=== PATIENT | male | born 1985 ===

== ENCOUNTER 2020-11-26 22:17 | Emergency (ER) | payer MEDICAID ==
[~2020-11-26] VITALS: Ht 172.7 cm; Wt 95.0 kg
--- NOTE | 2020-11-26 22:24 | NUR ---
Pt with some purposeful movement, NPA in right nares, spont RR and end tidal of 26. Opens eyes with painful stimuli. [employer] present, pt placed in 4pt leather restraints. IV from field patent. VSS. EKG done. Fidgalgo at bedside.
--- NOTE | 2020-11-26 22:47 | NUR ---
Pt waking up more now, follow simple commands, maintain gag reflex, opens mouth for suction. Labs drawn, straight cath in and out for urine tox. [employer] released pt from custody.
[2020-11-26 22:50] LABS: BASOPHILS % (AUTO) 0 % (0-1); EOSINOPHILS % (AUTO) 1 % (1-7); LYMPHOCYTES % (AUTO) 11 % (22-44); MEAN CORPUSCULAR HEMOGLOBIN 32.3 pg (27.5-34.5); MEAN CORPUSCULAR HGB CONC 34.1 g/dL (33.2-36.2); MEAN PLATELET VOLUME 8.6 fL (7.4-10.4); MONOCYTES % (AUTO) 6 % (2-9); NEUTROPHILS % (AUTO) 82 % (42-75); PLATELET COUNT 309 x10^3/uL (130-400); RED BLOOD COUNT 4.71 x10^6/uL (4.38-5.82)
[2020-11-26 22:51] LABS: MD NO
[2020-11-26 23:00] LABS: ALANINE AMINOTRANSFERASE 21 U/L (12-78); ANION GAP 9 mmol/L (5-15); CALCIUM 8.4 mg/dL (8.5-10.1); CHLORIDE 106 mmol/L (98-107); CREATININE 0.95 mg/dL (0.7-1.3); SALICYLATE LEVEL 2.7 mg/dL (2.8-20.0)
[2020-11-26] MEDS ORDERED: SODIUM CHLORIDE 0.9% 1,000ML IVBOLUS ONE (23:00)
--- NOTE | 2020-11-26 23:01 | NUR ---
Pt more alert, NPA removed, pt speaking intermittent language and saying prayers. Reoriented pt to where he is. VSS. Will continue to monitor. CN informed of progress of pt for downgrade to [facility].
[2020-11-26 23:02] LABS: ALKALINE PHOSPHATASE 72 U/L (45-117); BILIRUBIN,TOTAL 0.2 mg/dL (0.2-1.0); TOTAL PROTEIN 7.2 g/dL (6.4-8.2)
[2020-11-26 23:07] LABS: AMPHETAMINE SCREEN, URINE Negative (Negative); BARBITURATE SCREEN, URINE Negative (Negative); BENZODIAZEPINE SCREEN, URINE Negative (Negative); CANNABINOID SCREEN, URINE Positive (Negative); COCAINE SCREEN, URINE Negative (Negative); METHADONE SCREEN, URINE Negative (Negative); OPIATE SCREEN, URINE Negative (Negative)
--- NOTE | 2020-11-26 23:11 | NUR ---
Pt stable for downgrade to psych room, CN informed.
--- NOTE | 2020-11-26 23:29 | NUR ---
Remains awake, alert cooperative, vss. Belongings bagged and labeled x2. [employer] released, the "evidence" bag is his property.
--- NOTE | 2020-11-26 23:43 | NUR ---
All restraints released, pt calm, cooperative is now alert and oriented x3. VSS. To be moved to psych area. Belongings to storage.
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
--- NOTE | 2020-11-27 00:03 | NUR ---
REPORT FROM ROSARIO EDDY. PT MOVED FROM T4 TO ROOM 2
--- NOTE | 2020-11-27 02:03 | NUR ---
PT RESTING COMFORTABLY ON GURNEY WITH EYES CLOSED. PT DENIES ANY NEEDS AT THIS TIME. SAFETY MEASURES IN PLACE AND SITTER IN VIEW.
--- NOTE | 2020-11-27 05:02 | NUR ---
PT SUPINE ON GURNEY, RESTING COMFORTABLY WITH EYES CLOSED. NADN, VSS. PT DENIES ANY NEEDS AT THIS TIME. SAFETY PRECAUTIONS IN PLACE AND SITTER IN VIEW, WILL CONTINUE TO MONITOR.
--- NOTE | 2020-11-27 05:10 | NUR ---
PT OFFERED TO BE MOVED TO HOSPITAL BED AT THIS TIME, PT DECLINED AND STATES "I AM FINE RIGHT NOW. I STILL WANT TO REST AND JUST GO HOME". WILL ATTEMPT AGAIN LATER
--- NOTE | 2020-11-27 05:54 | NUR ---
packet faxed to [facility] for first dibs
--- NOTE | 2020-11-27 06:57 | NUR ---
REPORT TO LOYDA EDDY
--- NOTE | 2020-11-27 07:00 | NUR ---
REPORT FROM MAGDALENE, ASSUME CARE OF PT AT THIS TIME. PT SLEEPING, SITTER AT DOORWAY.
--- NOTE | 2020-11-27 07:37 | NUR ---
EMERGENCY PREPAREDNESS MANAGER: JAZZMINE EDDY FROM [facility] AT BEDSIDE FOR PT EVAL, DISCUSSING POC WITH PRIMARY RN LOYDA WITH REGARDS TO PT ACCEPTANCE ON BHU FLOOR.
[2020-11-27 08:00] VITALS: BP 101/61
--- NOTE | 2020-11-27 08:01 | NUR ---
TASK RN: LOUIS SWAB OBTAINED AND WALKED TO LAB. PT TOLERATED WELL. PT PROVIDED W/ BREAKFAST TRAY. NO OTHER NEEDS AT THIS TIME. RESP EVEN AND UNLABORED, NATALIA.
--- NOTE | 2020-11-27 09:17 | NUR ---
CALL TO JAZZMINE/Sandro TO INQUIRE ON PT'S ACCEPTANCE. INSURANCE VERIFICATION PENDING. [facility] WILL CALL BACK WHEN VERIFICATION PROCESS COMPLETE. PT SLEEPING, NAD. SITTER AT DOORWAY.
--- NOTE | 2020-11-27 10:29 | NUR ---
REPORT TO Sandro, PT READY TO GO AT 1100.
--- NOTE | 2020-11-27 11:42 | NUR ---
AWAITING 1:1 SITTER AVAILABILITY BEFORE PT CAN BE TRANSPORTED TO [facility]. PT COOPERATIVE WITH CARE, SLEEPING INTERMITTENTLY. IV D/C'D, MONITORING EQUIPMENT REMOVED. CALL LIGHT WITHIN REACH.
[2020-11-27] MEDS ORDERED: ESCI10TA10 PO (15:40)
== END 2020-11-27 12:20 ==
LOC: ED 11-27 00:27 → EDIP 11-27 01:32 → UNDOADMOB 11-27 01:32 → ED 11-27 12:20
DX: F32.1 Major depressive disorder, single episode, moderate (principal); Z20.822 Contact with and (suspected) exposure to COVID-19; R45.851 Suicidal ideations; G92 Toxic encephalopathy; R94.31 Abnormal electrocardiogram [ECG] [EKG]; F10.120 Alcohol abuse with intoxication, uncomplicated; Z72.9 Problem related to lifestyle, unspecified; Y90.0 Blood alcohol level of less than 20 mg/100 ml
CPT/HCPCS: 36415; 80053; 80299; 80307; 80320; 80329; 85025; 87426; 93005; 96360; 96361; 99285; J7030; G0480

== ENCOUNTER 2020-11-27 11:24 | Inpatient (IN) | payer MEDICAID ==
[~2020-11-27] VITALS: Ht 172.7 cm; Wt 95.0 kg
[2020-11-27] MEDS ORDERED: ONDANSETRON ODT 4 MG PO PRN (11:30)
[2020-11-27] MEDS ORDERED: ACETAMINOPHEN 325 MG TABLET PO PRN (11:30)
[2020-11-27] MEDS ORDERED: PLEASE ENTER HEIGHT AND WEIGHT MC SCH (13:30)
[2020-11-27 13:55] VITALS: BP 132/89
[2020-11-27] MEDS ORDERED: ESCI10TA10 PO (15:40)
[2020-11-27 19:47] VITALS: BP 99/58
[2020-11-27] MEDS: DIVALPROEX 500 MG TABLET.DR PO SCH (21:00)
[2020-11-28 06:48] LABS: CHOL/HDL RATIO 3.3; FREE T4 (FREE THYROXINE) 1.07 ng/dL (0.76-1.46); LDL/HDL RATIO 1.4 (0.5-3.0)
[2020-11-28 07:41] VITALS: BP 106/65
[2020-11-28] MEDS: ESCITALOPRAM 10MG TABLET PO SCH (08:38)
[2020-11-28] MEDS: DIVALPROEX 500 MG TABLET.DR PO SCH ×2 (08:39→19:36)
[2020-11-28 15:13] LABS: MICROSCOPIC NOT IND
[2020-11-28 19:44] VITALS: BP 124/84
[2020-11-28 19:46] VITALS: BP 125/80
[2020-11-29 07:44] VITALS: BP 119/70
[2020-11-29] MEDS: ESCITALOPRAM 10MG TABLET PO SCH (08:44)
[2020-11-29] MEDS: DIVALPROEX 500 MG TABLET.DR PO SCH ×2 (09:00→20:25)
[2020-11-29 19:49] VITALS: BP 105/68
[2020-11-30 07:34] VITALS: BP 104/68
[2020-11-30] MEDS: ESCITALOPRAM 10MG TABLET PO SCH (09:00)
[2020-11-30] MEDS: DIVALPROEX 500 MG TABLET.DR PO SCH ×2 (09:00→20:50)
[2020-11-30 19:35] VITALS: BP 110/70
[2020-12-01 07:15] VITALS: BP 114/73
[2020-12-01] MEDS: ESCITALOPRAM 10MG TABLET PO SCH (08:36)
[2020-12-01] MEDS: DIVALPROEX 500 MG TABLET.DR PO SCH (08:39)
[2020-12-01] MEDS ORDERED: ESCI10TA97 PO (16:12)
[2020-12-01] MEDS ORDERED: CARB200T4 PO (16:12)
[2020-12-01 19:15] VITALS: BP 122/73
[2020-12-01] MEDS ORDERED: CARBAMAZEPINE 200 MG TABLET PO SCH (21:00)
[2020-12-02] MEDS: ESCITALOPRAM 10MG TABLET PO SCH (07:54)
[2020-12-02 08:04] VITALS: BP 131/88
== END 2020-12-02 08:46 | disposition home or self-care (01) | DRG 885 ==
LOC: 3E 12:30
PROVIDERS: ADMIT Psychiatry & Neurology Psychosomatic Medicine; ATTEND Psychiatry & Neurology Psychosomatic Medicine
DX: F33.2 Major depressive disorder, recurrent severe without psychotic features (principal); R45.851 Suicidal ideations; D72.829 Elevated white blood cell count, unspecified; F10.20 Alcohol dependence, uncomplicated; F12.10 Cannabis abuse, uncomplicated; F17.210 Nicotine dependence, cigarettes, uncomplicated; Z59.9 Problem related to housing and economic circumstances, unspecified; Z79.899 Other long term (current) drug therapy
CPT/HCPCS: 36415; 80061; 81003; 84439; 84443